=== PATIENT | female | born 1980 | race Two or more races ===

== ENCOUNTER 2025-05-05 07:45 | Inpatient (IN) | payer OTHER ==
[~2025-05-05] VITALS: Ht 170.2 cm; Wt 111.1 kg
[2025-05-05] MEDS ORDERED: [UNRECOGNIZED DRUG - OTHER] (08:12)
[2025-05-05 08:13] VITALS: BP 138/79
[2025-05-05 08:17] VITALS: BP 150/75
[2025-05-05 08:32] LABS: URINE APPEARANCE Clear; URINE BILIRRUBIN Negative (NEGATIVE); URINE BLOOD Negative; URINE COLOR Yellow; URINE GLUCOSE Negative (NEGATIVE); URINE KETONE Negative (NEGATIVE); URINE LEUKOCYTE Negative; URINE NITRATE Negative; URINE PROTEIN Negative (NEGATIVE); URINE UROBILINOGEN 0.2 E.U./dl
[2025-05-05 08:35] LABS: URINE BACTERIA 823.0 uL (0.0-1933); URINE EPITHELIAL CELLS 82.9 uL (0.0-38.8); URINE RBC 5.8 uL (0.0-20.8); URINE WBC 6.3 uL (0.0-23.2)
[2025-05-05 08:42] LABS: URINE CAST 0.14 uL (0.0-1.40)
[2025-05-05 08:44] LABS: BASO % 0.3 % (0.1-1.2); EOS # 0.10 (0.04-0.54); EOS % 1.0 % (0.7-7.0); LYMPH # 1.92 (1.18-3.74); LYMPH % 18.7 % (19.3-53.1); MEAN PLATELET VOLUME 10.10 fl (9.4-12.4); MONO # 0.88 (0.24-0.82); MONO % 8.6 % (4.7-12.5); NEUT # 7.31 (1.56-6.13); NEUT % 71.0 % (34.0-71.1); RED CELL DISTRIBUTION WIDTH 18.9 % (11.6-14.4)
[2025-05-05 09:09] LABS: INR 1.0
[2025-05-05 09:12] LABS: ALT/SGPT 24.0 U/L (12-78); AST/SGOT 14.0 U/L (15-37); BILIRUBIN TOTAL 0.29 mg/dL (0.3-1.2); BUN CREA RATIO 15.0 (7.0-25.0); CREATININE SERUM 0.67 mg/dL (0.55-1.02); GFR 94.76; GLOBULINA 4.3 G/DL (2.4-3.5); GLUCOSE FASTING 90.0 mg/dL (65-100); OSMOLALITY SERUM 280.0 MOSM/KG (275-295)
[2025-05-13] MEDS ORDERED: DICLOFENAC POTA50 MG (14:08)
[2025-05-13] MEDS ORDERED: AMLODIPINE BESYL5 MG (14:08)
[2025-05-13] MEDS ORDERED: CHLORTHALIDONE25 MG (14:08)
[2025-05-13] MEDS ORDERED: ENALAPRILAT DIHYDRATE 1.25 MG/ML VIAL IV PRN (16:00)
[2025-05-13] MEDS ORDERED: RINGERS SOLUTION,LACTATED 1,000 ML IV SCH (19:15)
[2025-05-13] MEDS ORDERED: MORPHINE SULFATE 4 MG/ML VIAL IV ONE ×3 (19:30→20:30)
[2025-05-13] MEDS ORDERED: MORPHINE SULFATE 4 MG/ML VIAL IV PRN (19:30)
[2025-05-13 22:12] VITALS: BP 138/79
[2025-05-13] MEDS ORDERED: SUGAMMADEX SODIUM 200 MG/2 ML VIAL IV ONE (22:15)
[2025-05-13] MEDS ORDERED: CEFOXITIN SODIUM 2,000 MG VIAL IV ONE (22:15)
[2025-05-13] MEDS ORDERED: KETOROLAC TROMETHAMINE 60 MG VIAL IM ONE (22:15)
[2025-05-13] MEDS ORDERED: HEMOSTATIC MATRIX 1 KIT KIT TOP ONE (22:15)
[2025-05-13 23:31] LABS: BASO % 0.1 % (0.1-1.2); EOS # 0.00 (0.04-0.54); EOS % 0.0 % (0.7-7.0); LYMPH # 0.82 (1.18-3.74); LYMPH % 4.0 % (19.3-53.1); MEAN PLATELET VOLUME 10.40 fl (9.4-12.4); MONO # 0.77 (0.24-0.82); MONO % 3.7 % (4.7-12.5); NEUT # 18.86 (1.56-6.13); NEUT % 91.8 % (34.0-71.1); RED CELL DISTRIBUTION WIDTH 18.6 % (11.6-14.4)
[2025-05-14 00:33] VITALS: BP 147/84
[2025-05-14 08:41] VITALS: BP 140/88
[2025-05-14] MEDS ORDERED: AMLODIPINE BESYLATE 5 MG TABLET PO SCH (09:00)
[2025-05-14] MEDS ORDERED: OxyCODONE HCL 5 MG TABLET (ROXICODONE) PO PRN (09:00)
[2025-05-14 13:47] VITALS: BP 120/75
[2025-05-14 16:00] VITALS: BP 123/77
[2025-05-15 00:37] VITALS: BP 109/66
[2025-05-15 08:22] VITALS: BP 132/83; O2SAT 97
[2025-05-15 12:55] VITALS: BP 131/80; O2SAT 98
[2025-05-15] MEDS ORDERED: DOCUSATE SODIUM 100MG CAP PO ONE (13:45)
[2025-05-15 16:00] VITALS: BP 122/72
[2025-05-16 00:51] VITALS: BP 110/71
[2025-05-16] MEDS ORDERED: IBUPROFEN800 MG PO (08:16)
[2025-05-16 08:24] VITALS: BP 129/85
== END 2025-05-16 10:03 | disposition home or self-care (01) | DRG 743 ==
LOC: OB/GYN 05-13 07:00 → O/R 05-13 13:32 → OB/GYN 05-13 18:57
PROVIDERS: Obstetrics & Gynecology; ADMIT Obstetrics & Gynecology; ATTEND Obstetrics & Gynecology
PROC: 0UT70ZZ Resection of Bilateral Fallopian Tubes, Open Approach (ICD-10-PCS; 2025-05-13)
PROC: 0UT90ZZ Resection of Uterus, Open Approach (ICD-10-PCS; principal; 2025-05-13 07:00)
DX: D25.1 Intramural leiomyoma of uterus (principal); D25.2 Subserosal leiomyoma of uterus; N80.03 Adenomyosis of the uterus; N72 Inflammatory disease of cervix uteri